=== PATIENT | male | born 1985 | race Caucasian/White ===

== ENCOUNTER 2023-12-04 13:43 | Emergency (ER) | payer OTHER, SELFPAY ==
[2023-12-04 13:44] VITALS: BP 142/89; PULSE 74; RESP 18; TEMP 36.7; O2SAT 98; BMI 26.6
--- NOTE | 2023-12-04 13:49 | ED.EAR ---
HPI - Ear Problem General Chief complaint: Ear Problems Stated complaint: impacted ear drum Time Seen by Provider: 12/04/23 14:40 Related Data Allergies Allergy/AdvReac Type Severity Reaction Status Date / Time No Known Allergies Allergy Verified 12/04/23 13:47 [facility] Social History Social History Advance Directives: No Advance Directives Information Provided: No Do you have a plan to hurt others: No Plan Physical Exam Vital Signs: Vital Signs: Last Vital Signs Temp 98 F 12/04/23 14:52 Pulse 64 12/04/23 14:52 Resp 18 12/04/23 14:52 BP 114/70 12/04/23 14:52 Pulse Ox 97 12/04/23 14:52 O2 Del Method Room Air 12/04/23 14:52 BMI result Body Mass Index 26.6 Course Course Course Narrative: This is a Rapid Medical Examination (RME) performed by Miracle Child PA-C in triage. Full HPI, ROS, assessment and treatment plan per primary provider in the Main ED. 38 yo male here for eval of decreased hearing to left ear x1 week. Reports approx 1 wk ago got metal shavings in left EAC while at work which he was able to remove himself. in the process, reports pushing cerum further back into his ear. since this time reports decreased hearing to left ear and increased pressure which has been aggravating his tinnitus. on exam, no pain on manipulation of either pinna/tragus. b/l EACs without erythema or edema. there is cerumen impaction b/l. unable to visualize tms. decreased hearing noted to L ear. Plan: disimpaction Reevaluation(s) Reevaluation #1: duplicate note. please refer to Dr. Portillo's completed note regarding patient's visit on 12/04/23. Discharge Plan Discharge Clinical Impression: Bilateral impacted cerumen Patient Disposition: Home, Self-Care Print Language: Latvian
[2023-12-04 14:52] VITALS: BP 114/70; PULSE 64; RESP 18; TEMP 36.6; O2SAT 97
--- NOTE | 2023-12-04 14:52 | ED.GENADULT ---
HPI - General Adult General Chief complaint: Ear Problems Stated complaint: impacted ear drum Time Seen by Provider: 12/04/23 14:40 History of Present Illness HPI narrative: This is a 38-year-old man with a past medical history of ankylosing spondylitis who presents for cerumen impaction. Patient reports that he has been told he has small ear canals ? with his previous episodes of ear wax impaction. Patient reports previous evening his ears irrigated. Patient reports that he was recommended to discontinue using Q-tips, but states that he has recently begun using Q-tips again. Patient reports using Q-tips about a week ago and states that he noted decreased hearing in his left ear subsequently. Patient reports no decreased hearing in his right ear. He states no ear pain or tinnitus. Patient states no fever, chills, cough, congestion, vision changes, dizziness, headache, neck pain, paresthesias, chest pain, dyspnea, abdominal pain, back pain, changes in bowel habits or urinary symptoms. Related Data Previous Rx's ?Medication ?Instructions ?Recorded carbamide peroxide 6.5 % ear drops 10 drp otic (ear) left Q12H 4 days 12/04/23 (Debrox) #15 mL Allergies Allergy/AdvReac Type Severity Reaction Status Date / Time No Known Allergies Allergy Verified 12/04/23 13:47 Review of Systems Review of Systems: ROS as per [facility] Social History Social History Advance Directives: No Advance Directives Information Provided: No Do you have a plan to hurt others: No Plan Physical Exam ED Vital Signs: Vital Signs - 24 hr 12/04/23 13:44 12/04/23 14:52 12/04/23 17:00 Temperature 98.1 F 98 F 98.1 F Pulse Rate 74 64 66 Respiratory Rate 18 18 18 Blood Pressure 142/89 H 114/70 118/72 Pulse Oximetry 98 97 98 Oxygen Delivery Method Room Air Room Air Room Air 12/04/23 17:07 Temperature 98.1 F Pulse Rate 66 Respiratory Rate 18 Blood Pressure 118/72 Pulse Oximetry 98 Oxygen Delivery Method Room Air BMI result Body Mass Index 26.6 Gen: NAD, AOx3 HEENT: NCAT, EOMI, normal conjunctiva, bilateral ear canal cerumen impaction CV: RRR Pulm: CTAB GI: Soft, NTND Neuro: Grossly non focal Procedures Ear Wax Removal Both Ears: Cerumenolytic Used: other (1:1 ratio of saline and hydrogen peroxide) Results: Re-examined: other (Cerumen completely removed from the right ear, some cerumen remains within the left ear) TM Examination: other (Unable to visualize tympanic membranes) Ear Canal Exam: other (Scant hemostatic bleeding to left external auditory ear canal) Patient Tolerated Procedure: well Medical Decision Making Medical Decision Making MDM Narrative: Differential diagnosis includes, but is not limited to cerumen impaction, tympanic membrane perforation. Exam is notable for bilateral cerumen impaction. Otherwise, exam is reassuring. The tympanic membranes are unable to be visualized. The right ear is completely disimpacted from cerumen utilizing a saline/hydrogen peroxide. The left ear remains with some cerumen. On re-examination, patient is well-appearing and in no acute distress. There is no indication for further emergent evaluation in this otherwise well-appearing patient as above. ?Patient is made aware to avoid water emersion. Patient is made aware he discontinue using Q-tips and that he may need repeat disimpaction of his left ear after trial of Debrox. Patient is provided written and verbal instructions, educational materials, recommendations for outpatient follow-up, strict return precautions, prescription for Debrox and teach back is performed. ?Patient states understanding and agreement with plan of care. ?Patient is discharged home in stable and improved condition. Discharge Plan Discharge Clinical Impression: Bilateral impacted cerumen Patient Disposition: Home, Self-Care Additional Instructions: You were seen and evaluated in the emergency room. Your right ear was completely disimpacted of ear wax. Your left ear was partially disimpacted of ear wax. You are given a prescription for ear drops. Please use as directed in your left ear for the next 4 days. Please discontinue using Q-tips. Please keep your ears out of water such as with swimming, Jacuzzi/hot tub or any type of water immersion. Please follow-up with your primary care doctor in the next 5-7 days. Please return to the emergency room if you develop any worsening symptoms including, but not limited to fever, ear pain, ringing in your ears, dizziness or new hearing loss. Prescriptions: New Debrox 6.5 % drops 10 drp otic (ear) left Q12H 4 Days Qty: 15 0RF Interventions: ED Discharge Assessment Last Done: 12/04/23 17:07 Discharge Date/Time: 12/04/23 17:08 Print Language: [place]
[2023-12-04 17:00] VITALS: BP 118/72; PULSE 66; RESP 18; TEMP 36.7; O2SAT 98
[2023-12-04 17:07] VITALS: BP 118/72; PULSE 66; RESP 18; TEMP 36.7; O2SAT 98
== END 2023-12-04 17:08 | disposition home or self-care (01) ==
PROVIDERS: Emergency Provider Emergency Medicine
DX: H61.23 Impacted cerumen, bilateral (principal)
CPT/HCPCS: 69209; 99282; 99283

== ENCOUNTER 2024-04-06 11:04 | Emergency (ER) | payer OTHER, SELFPAY ==
[2024-04-06 11:22] VITALS: BP 121/81; PULSE 75; RESP 14; TEMP 36.4; O2SAT 100; BMI 25.1
--- NOTE | 2024-04-06 11:35 | ED_ITS ---
HPI - General Adult General Chief complaint: General Medical Stated complaint: flu like symptoms Time Seen by Provider: 04/06/24 12:53 Source: patient Mode of arrival: ambulatory Limitations: no limitations History of Present Illness ED Provider: augusto DUNLAP narrative: Patient is a 38-year-old male presenting to the ED with nasal congestion, cough, sore throat, headache since Thursday, nausea and vomiting since last night. Denies fevers. Emesis non-bloody, non-bilious. States does not currently have a PCP, was advised to present here by employer. MD complaint: cough, nausea, vomiting Onset (ago): day(s) Treatments prior to arrival: none Related Data Previous Rx's ?Medication ?Instructions ?Recorded carbamide peroxide 6.5 % ear drops 10 drp otic (ear) left Q12H 4 days 12/04/23 (Debrox) #15 mL ondansetron 4 mg disintegrating 4 mg PO Q8H PRN nausea and 04/06/24 tablet vomiting #9 tabs Allergies Allergy/AdvReac Type Severity Reaction Status Date / Time No Known Allergies Allergy Verified 04/06/24 11:37 Review of Systems Review of Systems: As per HPI. Yes all other systems are reviewed and are negative Constitutional: Constitutional: Reports as per HPI [facility] Social History Social History Advance Directives: No Advance Directives Information Provided: No Do you have a plan to hurt others: No Plan Physical Exam ED Vital Signs: Vital Signs - 24 hr 04/06/24 11:22 Temperature 97.5 F Pulse Rate 75 Respiratory Rate 14 Blood Pressure 121/81 Pulse Oximetry 100 Oxygen Delivery Method Room Air BMI result Body Mass Index 25.1 Vital signs have been reviewed and appear to be correct. Blood pressure normal. Heart rate normal. Respiratory rate normal. Temperature normal. Oxygen saturation normal. Const General: cooperative, healthy appearing and no acute distress Orientation/consciousness: oriented to person, oriented to place, oriented to time and patient oriented x3 Limitations: no limitations HENMT Head: Yes normocephalic and Yes atraumatic Ears: external ears normal General nose exam: Normal external nose present Face and sinus: Yes face symmetric Mouth: oropharynx normal and moist mucous membranes Throat: Yes uvula midline Eyes Pupils: Equal, round and reactive pupils present Neck Neck: Yes normal visual inspection and Yes supple Resp Effort & Inspection: normal respiratory effort and able to speak in complete sentences Auscultation: clear to auscultation bilaterally Cardio Rate: regular rate Rhythm: regular rhythm Heart sounds: S1 normal heart sound present and S2 normal heart sound present GI Palpation (GI): Soft to palpation and nontender Auscultation: normoactive bowel sounds General: Yes no CVA tenderness Back/Spine/Pelvis Back: no CVA tenderness Skin General skin exam: elasticity normal and turgor normal Neuro General: oriented to person, oriented to place, oriented to time, patient oriented x3, moves all extremities, no focal motor deficits and CN's II-XI intact bilaterally Cranial nerves: Yes Equal, round and reactive pupils present Cognition (Neuro): normal cognition Extrem General: Yes full ROM, Yes no pedal edema and Yes no calf tenderness Psych Mental Status: mental status grossly normal Affect: normal affect Thought process: Normal thought process present Course Course Course Narrative: This is a rapid medical exam performed by Lisa Britton NP: Additional HPI, ROS, PE not included below will be deferred to primary provider. Patient is a 38-year-old male presenting to the ED with nasal congestion, cough, sore throat, headache since Thursday, nausea and vomiting since last night. Plan: strep and viral swabs Medical Decision Making Medical Decision Making [facility] Narrative: Patient is a 38-year-old male presenting to the ED with nasal congestion, cough, sore throat, headache since Thursday, nausea and vomiting since last night. On exam patient is awake, A+Ox3, VS WNL, afebrile, normal neurological exam without focal deficits, physical exam findings as above. Given reported symptoms and physical exam findings, initial differential includes viral illness, covid, flu, rsv, strep pharyngitis. Strep and viral serology negative. Patient updated on results, all questions answered. Advised symptoms likely due to viral illness, can alternate Tylenol and ibuprofen, should ensure adequate rest and adequate fluid intake. Will send prescription for zofran. Return precautions discussed. Patient verbalized understanding of and agreement with plan. Differential Diagnosis Differential Diagnoses: The differential diagnosis associated with the presentation includes As per [facility] Lab Data [facility] Lab Attestation statement: I reviewed the patient's lab results. As per [facility] Labs: Lab Results 04/06/24 Range/Units 11:58 Influenza Type A (PCR) NEGATIVE (Negative) Influenza Type B (PCR) NEGATIVE (Negative) RSV RNA Qual (PCR) NEGATIVE (Negative) SARS-CoV-2 RNA (RT-PCR) NEGATIVE (Negative) S. pyogenes GrpA KARINE Negative (Negative) External Record Review External record reviewed: Inpatient record, Office record and Outpatient record Prescription Management I considered prescription management with: Other Discharge Plan Discharge Clinical Impression: Viral illness Patient Disposition: Home, Self-Care Instructions: Viral Syndrome (ED) Additional Instructions: You were evaluated in the emergency department today for sore throat and cough. Your Covid, flu, RSV, and strep tests were all negative. Your symptoms are likely related to a viral illness which will resolve on its own with time and rest. You should ensure adequate fluid intake, and can use Tylenol 650 mg or i buprofen 600 mg every 6 hours as needed for fever or discomfort. You are being prescribed ondansetron which you can take every 8 hours as needed for nausea/vomiting. Please follow-up with your primary care provider this week. Return to the emergency department if you develop chest pain, worsening shortness of breath, difficulty swallowing, fever 100.4? F or greater or any other concerning symptoms. Prescriptions: New ondansetron 4 mg tablet,disintegrating 4 mg PO Q8H PRN (Reason: nausea and vomiting) Qty: 9 0RF No Action Debrox 6.5 % drops 10 drp otic (ear) left Q12H 4 Days Qty: 15 0RF Stand Alone Forms: Work/School Release Print Language: Macedonian
[2024-04-06 12:10] LABS: IDNOW Serial# 08D9AD1C; Strep A Nucleic Acid Negative (Negative)
[2024-04-06 12:42] LABS: Influenza A PCR NEGATIVE (Negative); Influenza B PCR NEGATIVE (Negative); Resp Syncy Virus RNA Qual PCR NEGATIVE (Negative); SARS COV2 PCR INHOUSE NEGATIVE (Negative)
[2024-04-06 13:02] VITALS: BP 121/81; PULSE 75; RESP 14; TEMP 36.4; O2SAT 100
== END 2024-04-06 13:03 | disposition home or self-care (01) ==
PROVIDERS: Registered Nurse Emergency; Emergency Provider Student in an Organized Health Care Education/Training Program
DX: B34.9 Viral infection, unspecified (principal); J02.9 Acute pharyngitis, unspecified; Z03.818 Encounter for observation for suspected exposure to other biological agents ruled out; R05.9 Cough, unspecified
CPT/HCPCS: 0241U; 87651; 99282; 99283

== ENCOUNTER 2024-05-24 18:31 | Emergency (ER) | payer OTHER, SELFPAY ==
--- NOTE | ~2024-05-24 | XR_ITS ---
EXAMINATION: XR HIP, RIGHT CLINICAL INFORMATION: Pain; history of ankylosing spondylitis. COMPARISON: None available. TECHNIQUE: AP and frog-leg lateral views of the right hip are submitted, together with an AP view of the pelvis. FINDINGS: No fracture. Alignment is anatomic. The bilateral acetabular joint spaces are symmetric and well-maintained. The femoral heads are smooth. The bilateral sacroiliac joints are symmetric and well-maintained. 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 Soft tissues are unremarkable. XR/XR hip RT w [id number] IMPRESSION: 1. No fracture or dislocation is seen. 2. No unusual degenerative changes are seen of the hips or sacroiliac joints. 3. 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 Electronically signed by: Blake Herrera MD 05/24/2024 09:13 PM [facility]
[2024-05-24 18:46] VITALS: BP 124/82; PULSE 85; RESP 18; TEMP 37; O2SAT 99; BMI 25.2
--- NOTE | 2024-05-24 18:47 | ED_ITS ---
HPI - Extremity Injury (Lower) General Chief Complaint: Extremity Injury, Lower Stated Complaint: Hip pain Time Seen by Provider: 05/24/24 22:01 Source: patient Mode of arrival: ambulatory Limitations: no limitations History of Present Illness ED Provider: sosa HPI Narrative: Patient's ankylosing spondylosis on sulfasalazine comes here with pain in the right ring finger and right hip for last 2 days similar to that previous flare- up no fall no injury patient never been on TNF inhibitors for ankylosing spondylosis usually it is pretty stable Related Data Previous Rx's ?Medication ?Instructions ?Recorded carbamide peroxide 6.5 % ear drops 10 drp otic (ear) left Q12H 4 days 12/04/23 (Debrox) #15 mL ondansetron 4 mg disintegrating 4 mg PO Q8H PRN nausea and 04/06/24 tablet vomiting #9 tabs naproxen 500 mg tablet (Naprosyn) 500 mg PO BID PRN pain #20 tabs 05/24/24 oxycodone 5 mg tablet 5 mg PO Q6H PRN pain #20 tabs 05/24/24 Allergies Allergy/AdvReac Type Severity Reaction Status Date / Time No Known Allergies Allergy Verified 05/24/24 18:51 Review of Systems Review of Systems: Yes all other systems are reviewed and are negative PMFSH Social History Social History Advance Directives: No Advance Directives Information Provided: Yes Do you have a plan to hurt others: No Plan Physical Exam Vital Signs: Vital Signs: Last Vital Signs Temp 98.1 F 05/24/24 22:09 Pulse 71 05/24/24 22:09 Resp 16 05/24/24 22:09 BP 111/69 05/24/24 22:09 Pulse Ox 100 05/24/24 22:09 O2 Del Method Room Air 05/24/24 22:09 BMI result Body Mass Index 25.2 Appearance: Alert. Oriented X3. No acute distress. Eyes: PERRLA, No Nystagmus ENT: Pharynx normal. Oral Mucosa moist Neck: Normal inspection. Neck supple. CVS: Normal heart rate and rhythm. Pulses normal. Respiratory: No respiratory distress. Equal air entry bilateral, no wheezing/rales/rhonchi Abdomen: Soft and nontender. Bowel sounds are present, no mass palpable, no CVA tenderness Skin: Skin warm and dry. Normal skin color. Normal skin turgor. Extremities: No lower extremity edema. No calf tenderness right hip diffuse tenderness in internal rotation right 4th finger proximal IP joint swelling Neuro: Oriented X 3. No motor deficit. Course Course Course Narrative: This is a Rapid Medical Examination (RME) performed by Piyush Nesbitt PA-C in triage. Full HPI, ROS, assessment and treatment plan per primary provider in the Main ED. 38 yo male with history of ankylosing spondylitis presenting for evaluation of nontraumatic right hip pain that started yesterday and has been worsening. primarily gets exacerbations of in his right hip. Plan: XR hip, pain control Medical Decision Making Independent Interpretation I performed an independent interpretation of an: Plain X-Ray Radiology Impression Discussion of test interpretation with radiology: I have reviewed the radiologist's reading. Radiologist Impression: No acute Discharge Plan Discharge Clinical Impression: Ankylosing spondylitis Patient Disposition: Home, Self-Care Instructions: Ankylosing Spondylitis (ED) Additional Instructions: Continue medication sulfasalazine Oxycodone for severe pain Naproxen 1 tablet twice a day for inflammation Prescriptions: New oxycodone 5 mg tablet 5 mg PO Q6H PRN (Reason: pain) Qty: 20 0RF Rx Instructions: Partial Fill upon patient request. naproxen [Naprosyn] 500 mg tablet 500 mg PO BID PRN (Reason: pain) Qty: 20 0RF No Action Debrox 6.5 % drops 10 drp otic (ear) left Q12H 4 Days Qty: 15 0RF ondansetron 4 mg tablet,disintegrating 4 mg PO Q8H PRN (Reason: nausea and vomiting) Qty: 9 0RF Print Language: Sammarinese
[2024-05-24 22:09] VITALS: BP 111/69; PULSE 71; RESP 16; TEMP 36.7; O2SAT 100
[2024-05-24] MEDS: oxyCODONE HCl Immed Release 5 MG TABLET 10 MG PO (22:29)
[2024-05-24 22:31] VITALS: BP 111/69; PULSE 71; RESP 16; TEMP 36.7; O2SAT 100
== END 2024-05-24 22:33 | disposition home or self-care (01) ==
PROVIDERS: Emergency Provider Internal Medicine
DX: M45.9 Ankylosing spondylitis of unspecified sites in spine (principal); M25.551 Pain in right hip
CPT/HCPCS: 73502; 99283

== ENCOUNTER 2025-05-29 07:56 | Outpatient (AMB) | payer OTHER, SELFPAY ==
--- OUTSIDE RECORDS SUMMARY | 2025-05-29 08:00 | XMS_ITS | Clinical Summary ---
Author Organization [address] Address [address] [place] [address] Phone Care Team Providers Care Lining Cleaner Name Role Phone Kailey Carter MD Primary Care Provider [phone] Allergies No known active allergies Medications methylphenidate 27 mg ER tablet Take 1 tablet (27 mg total) by mouth 1 (one) time each day in the morning. Max Daily Amount: 27 mg 4 Active amphetamine-dex troamphetamine XR (ADDERALL XR) 20 mg 24 hr capsule Take 1 capsule (20 mg total) by mouth 1 (one) time each day in the morning. upon awakening 5 Active hydrOXYzine pamoate (VISTARIL) 25 mg capsule Take 1 capsule (25 mg total) by mouth. 5 Active traZODone (DESYREL) 50 mg tablet Take 1 tablet (50 mg total) by mouth at bedtime. 5 Active Active Problems Problem Noted Date Diagnosed Date Attention deficit hyperactiv ity disorder (ADHD), predominantly hyperactive type 04/20/2025 Ankylosing spondylitis (CMS/[facility] V24, CMS/HCC V28 ) 04/20/2025 Insomnia 04/20/2025 Encounters Date Type Department Care Team Description 04/21/2025 Results Follow-Up Adult [address] [phone] Yvonne Melara MA 04/20/2025 2:30 PM EDT Office Visit [address] [phone] Neo Du PA Routine physical examination (Primary Dx); Multiple nevi; Scrotal masses; Attention deficit hyperactivity disorder (ADHD), predominantly hyperactive type; Insomnia, unspecified type; Ankylosing spondylitis, unspecified site of spine ([facility] V24, [facility] V28); Screening for prostate cancer; Encounter to establish care from Last 3 Months Immunizations Immunization Administration Dates Next Due Influenza trivalent, 0.5mL, preservative free (Fluarix; FluLaval; Fluzone) ages 6mo and older (Afluria) 3 years and older 04/19/2025,05/08/2024 Surgical History Surgery Date Site/Laterality Comments VASECTOMY 2021 WRIST FRACTURE SURGERY 07/06/1991 - 07/05/1992 Right Family History Medical History Relation Name Comments Coronary artery disease Father Lung cancer Maternal Grandfather Alzheimer's disease Maternal Grandmother Diabetes Mother Hypertension Mother Stroke Mother Relation Name Status Comments Father Alive Maternal Grandfather Maternal Grandmother Mother Alive Social History Tobacco Use Types Packs/Day Years Used Date Smoking Tobacco: Never Smokeless Tobacco: Never Alcohol Use Standard Drinks/Week Comments Yes 0 (1 standard drink = 0.6 oz pur e alcohol) occ Housing Instability Answer Date Recorde d Are you worried that in the next 2 months you may not have stable housing? No 04/21/2025 Food Access & Nutrition Answer Date Rec orded Do you have access to a vari ety of food including fruits and vegetables? Yes 04/21/2025 Health Literacy Answer Date Recorded How often do you need to hav e someone help you when you read instructions, pamphlets, or other written material from your doctor or pharmacy? Never 04/21/2025 Caregiver: How often do you need to have someone help you when you read instructions, pamphlets, or other written material from your doctor or pharmacy? Not on file 04/21/2025 Financial Risk Answer Date Recorded How hard is it for you to pa y for the very basics like food, housing, medical care, and air conditioning / heating? Not very hard 04/21/2025 Transportation Answer Date Recorded Has the lack of transportati on kept you from meetings, work, or from getting things needed for daily living? No Has the lack of transportati on kept you from medical appointments or from getting medications? No 04/21/2025 Social Isolation Answer Date Recorded How often do you feel lonely or isolated from th ose around you? Never 04/21/2025 Food Risk Answer Date Recorded Within the past 12 months we worried whether our food would run out before we got money to buy more. Never true 04/21/2025 Within the past 12 months th e food we bought just didn't last and we didn't have money to get more. Never true 04/21/2025 Dependent Care Answer Date Recorded Do you need help finding or paying for care for your loved ones. For example, manager child or elderly care for an older adult? No 04/21/2025 Education Answer Date Recorded Do you think completing more education or training, like finishing a GED, going to college, or learning a trade, would be helpful for you? No 04/21/2025 Employment and Income Answer Date Recor ded During the last four weeks, have you been actively looking for work? No 04/21/2025 Living Situation Answer Date Recorded What is your living situation? Unrecognized valu e 04/21/2025 Sex and Gender Information Value Date Recorded Sex Assigned at Not on file Legal Sex Male 11:41 AM EDT Gender Identity Not on file Sexual Orientation Not on file Obstetrics History Last Filed Vital Signs Vital Sign Reading Time Taken Comments Blood Pressure 102/68 04/20/2025 2:40 PM EDT Pulse 78 04/20/2025 2:40 PM EDT Temperature 36.3 C (97.4 F) 04/20/2025 2:40 PM EDT Respiratory Rate 12 04/20/2025 2:40 PM EDT Oxygen Saturation - - Inhaled Oxygen Concentration - - Weight 74.2 kg (163 lb 8 oz) 04/20/2025 2:40 PM EDT Height 172.7 cm (5' 8 ) 04/20/2025 2:40 PM EDT Body Mass Index 24.86 04/20/2025 2:40 PM EDT Plan of Treatment Upcoming Encounters Date Type Department Care Team (Late st Contact Info) Description 04/26/2026 9:30 AM EDT Office Visit Adult Medicine [address] [phone] Kailey Carter MD [address] [place] [address] Health Maintenance Due Date Last Done Comments DTaP,Tdap,and Td Vaccines (1 - Tdap) 10/01/2003 Hepatitis B Vaccines (1 of 3 - 19+ 3-dose series) 10/01/2003 HPV Vaccines (1 - 3-dose SCD M series) 10/01/2011 HIV Screening 04/20/2024 Hepatitis C Screening 04/20/2024 COVID-19 Vaccine (4 - 2024-2 6 season) 2025 12/04/2024, 05/08/2024, 10/16/2023 Social Influencers of Health Screening 04/21/2026 04/21/2025 Cholesterol Screening (Lipid Panel) 04/20/2030 04/20/2025 RSV Immunization Adult Patients (1 - 1-dose 75+ series) 10/01/2059 Influenza Vaccine Completed 04/19/2025, 05/08/2024 Depression Screening Completed 04/21/2025 HIB Vaccines Aged Out No longer eligi ble based on patient's age to complete this topic Hepatitis A Vaccines Aged Out No long er eligible based on patient's age to complete this topic IPV Vaccines Aged Out No longer eligi ble based on patient's age to complete this topic MMR Vaccines Aged Out No longer eligi ble based on patient's age to complete this topic Meningococcal ACWY Vaccine Aged Out N o longer eligible based on patient's age to complete this topic Meningococcal B Vaccine Aged Out No l onger eligible based on patient's age to complete this topic Pneumococcal Vaccine: Pediatrics (0 to 5 Years) and At-Risk Patients (6 to 49 Years) Aged Out No longer eligible b ased on patient's age to complete this topic RSV Immunization Patients Under 20 months Aged Out No longer eligible b ased on patient's age to complete this topic Varicella Vaccines Aged Out No longer eligible based on patient's age to complete this topic Procedures Procedure Name Priority Date/Time Associated Diagnosis Comments CBC WITH AUTO DIFFERENTIAL Routine 04/20/2025 3:30 PM EDT Routine physical examination CBC AND DIFFERENTIAL Routine 04/20/2025 3:30 PM EDT Routine physical examination COMPREHENSIVE METABOLIC PANEL Routine 04/20/2025 3:30 PM EDT Routine physical examination HEMOGLOBIN A1C Routine 04/20/2025 3:30 PM EDT Routine physical examination LIPID PANEL WITH REFLEX TO DIRECT LDL Routine 04/20/2025 3:30 PM EDT Routine physical examination PROSTATE SPECIFIC ANTIGEN DIAGNOSTIC Routine 04/20/2025 3:30 PM EDT Routine physical examination Screening for prostate cancer THYROID STIMULATING HORMONE WITH REFLEX TO FREE T4 AND FREE T3 Routine 04/20/2025 3:30 PM EDT Routine physical examination from Last 3 Months Results * Thyroid stimulating hormone with reflex to free t4 and free t3 (04/20/2025 3:30 PM EDT) TSH 1.18 0.40 - 4.00 mcIU/mL LAB CHEMISTRY METHOD 04/20/2025 7:53 PM EDT [facility] Blood Venous blood specimen / Unknown Venipuncture / Unknown 04/20/2025 3:30 PM EDT 04/20/2025 3:30 PM EDT Neo STACY LAB BLOOD ORDERABLES Final Res ult [facility] [address] [place] [address], [place] [phone] * (ABNORMAL) Lipid panel with reflex to direct LDL (04/20/2025 3:30 PM EDT) Cholesterol 181 0 - 200 mg/dL LAB CHEMISTRY METHOD 04/20/2025 6:49 PM EDT [facility] Triglycerides 152(H) 0 - 150 mg/dL LAB CHEMISTRY METHOD 04/20/2025 6:49 PM EDT [facility] HDL 46 >=40 mg/dL LAB CHEMISTRY METHOD 04/20/2025 6:49 PM EDT [facility] LDL Calculated 105(H) 0 - 100 mg/dL LAB CHEMISTRY METHOD 04/20/2025 6:49 PM EDT [facility] Comment:Estimated LDL Calcul ated using equation: Total cholesterol - HDL cholesterol - (Triglycerides/5) VLDL Cholesterol Emil 30.4 mg/dL LAB CHEMISTRY METHOD 04/20/2025 6:49 PM EDT [facility] Non HDL Chol. (LDL+VLDL) 135 <145 mg/dL LAB CHEMISTRY METHOD 04/20/2025 6:49 PM EDT [facility] Chol/HDL Ratio 3.9 0.0 - 4.4 LAB CHEMISTRY METHOD 04/20/2025 6:49 PM EDT [facility] Blood Venous blood specimen / Unknown Venipuncture / Unknown 04/20/2025 3:30 PM EDT 04/20/2025 3:30 PM EDT Neo STACY LAB BLOOD ORDERABLES Final Res ult [facility] [address] [place] [address], * Prostate specific antigen diagnostic (04/20/2025 3:30 PM EDT) PSA 0.40 0.00 - 4.00 ng/mL LAB CHEMISTRY METHOD 04/20/2025 7:17 PM EDT [facility] Blood Venous blood specimen / Unknown Venipuncture / Unknown 04/20/2025 3:30 PM EDT 04/20/2025 3:30 PM EDT Narrative [facility] - 04/20/2025 7:17 PM EDT The Siemens Advia Centaur Chemiluminescent Immunoassay is used. Results obtained with different assay methods or kits cannot be used interchangeably. Results cannot be interpreted as absolute evidence of the presence or absence of malignant disease. Neo STACY LAB BLOOD ORDERABLES Final Res ult [facility] [address] [place] [address], * (ABNORMAL) CBC auto differential (04/20/2025 3:30 PM EDT) WBC 6.6 4.8 - 10.8 K/mcL LAB HEMETOLOGY METHOD 04/20/2025 6:34 PM EDT [facility] RBC 4.70 4.50 - 5.50 M/[facility] LAB HEMETOLOGY METHOD 04/20/2025 6:34 PM EDT [facility] Hemoglobin 14.5 13.5 - 17.5 g/dL LAB HEMETOLOGY METHOD 04/20/2025 6:34 PM EDT [facility] Hematocrit 41.7(L) 42.0 - 54.0 % LAB HEMETOLOGY METHOD 04/20/2025 6:34 PM EDT [facility] MCV 88.2 79.0 - 98.0 FL LAB HEMETOLOGY METHOD 04/20/2025 6:34 PM EDT [facility] MCH 30.7 27.0 - 32.0 pcg LAB HEMETOLOGY METHOD 04/20/2025 6:34 PM EDT [facility] MCHC 34.8 32.0 - 37.0 g/dL LAB HEMETOLOGY METHOD 04/20/2025 6:34 PM EDT [facility] RDW 13.0 11.0 - 15.0 % LAB HEMETOLOGY METHOD 04/20/2025 6:34 PM EDT [facility] Platelets 320 130 - 400 K/[facility] LAB HEMETOLOGY METHOD 04/20/2025 6:34 PM EDT [facility] MPV 9.5 7.0 - 11.0 FL LAB HEMETOLOGY METHOD 04/20/2025 6:[facility] NRBC 0.0 <1.0 % LAB HEMETOLOGY METHOD 04/20/2025 6:34 PM EDT [facility] NRBC Absolute 0.00 <0.10 K/mcL LAB HEMETOLOGY METHOD 04/20/2025 6:34 PM EDT [facility] Neutrophils Relative 54.4 % LAB HEMETOLOGY METHOD 04/20/2025 6:34 PM EDT [facility] Lymphocytes Relative 31.9 % LAB HEMETOLOGY METHOD 04/20/2025 6:34 PM EDT [facility] Monocytes Relative 10.5 % LAB HEMETOLOGY METHOD 04/20/2025 6:34 PM [facility] Eosinophils Relative 2.3 % LAB HEMETOLOGY METHOD 04/20/2025 6:34 PM EDT [facility] Basophils Relative 0.6 % LAB HEMETOLOGY METHOD 04/20/2025 6:34 PM EDT [facility] Immature Granulocytes Relative 0.3 % LAB HEMETOLOGY METHOD 04/20/2025 6:34 PM EDT [facility] Neutrophils Absolute 3.61 1.50 - 7.00 K/mcL LAB HEMETOLOGY METHOD 04/20/2025 6:34 PM T [facility] Lymphocytes Absolute 2.12 1.00 - 5.00 K/mcL LAB HEMETOLOGY METHOD 04/20/2025 6:34 PM EDT [facility] Monocytes Absolute 0.70 0.20 - 1.00 K/mcL LAB HEMETOLOGY METHOD 04/20/2025 6:34 PM EDT [facility] Eosinophils Absolute 0.15 0.00 - 0.50 K/mcL LAB HEMETOLOGY METHOD 04/20/2025 6:34 PM EDT [facility] Basophils Absolute 0.04 0.00 - 0.20 K/mcL LAB HEMETOLOGY METHOD 04/20/2025 6:34 PM EDT [facility] Immature Granulocytes Absolute 0.02 0.00 - 0.03 K/mcL LAB HEMETOLOGY METHOD 04/20/2025 6:34 PM EDT [facility] Blood Venous blood specimen / Unknown Venipuncture / Unknown 04/20/2025 3:30 PM EDT 04/20/2025 3:30 PM EDT [facility] Final Res ult Performing Organization Address City/[facility]/ZIP Co de Phone Number [facility] [address] [place] [address], [place] [phone] * Hemoglobin A1c (04/20/2025 3:30 PM EDT) Hemoglobin A1C 5.5 <6.5 % LAB CHEMISTRY METHOD 04/20/2025 9:43 PM EDT [facility] Mean Bld Glu Estim. 111 mg/dL LAB CHEMISTRY METHOD 04/20/2025 9:43 PM EDT [facility] Blood Venous blood specimen / Unknown Venipuncture / Unknown 04/20/2025 3:30 PM EDT 04/20/2025 3:30 PM EDT Neo Du [place] LAB BLOOD ORDERABLES Final Res ult Performing Organization Address City/[facility]/ZIP Co de Phone Number [facility] [address] [place] [address], [place] [phone] * Comprehensive metabolic panel (04/20/2025 3:30 PM EDT) Sodium 139 133 - 145 mmol/L LAB CHEMISTRY METHOD 04/20/2025 6:49 PM EDT [facility] Potassium 3.9 3.5 - 5.5 mmol/L LAB CHEMISTRY METHOD 04/20/2025 6:49 PM EDT [facility] Chloride 105 96 - 110 mmol/L LAB CHEMISTRY METHOD 04/20/2025 6:49 PM [facility] CO2 29 21 - 32 mmol/L LAB CHEMISTRY METHOD 04/20/2025 6:49 PM [facility] Anion Gap 5 3 - 11 LAB CHEMISTRY METHOD 04/20/2025 6:49 PM [facility] Glucose 92 70 - 100 mg/dL LAB CHEMISTRY METHOD 04/20/2025 6:49 PM [facility] BUN 15 5 - 25 mg/dL LAB CHEMISTRY METHOD 04/20/2025 6:49 PM [facility] Creatinine 1.23 0.70 - 1.30 mg/dL LAB CHEMISTRY METHOD 04/20/2025 6:49 PM [facility] eGFR 76 >=60 mL/min/1. 73m2 LAB CHEMISTRY METHOD 04/20/2025 6:49 PM [facility] Comment:Calculation based on the Chronic Kidney Disease Epidemiology Collaboration (CKD-EPI) equation refit without adjustment for race. BUN/Creatinine Ratio 12.2 LAB CHEMISTRY METHOD 04/20/2025 6:49 PM [facility] Calcium 9.1 8.5 - 10.5 mg/dL LAB CHEMISTRY METHOD 04/20/2025 6:49 PM [facility] AST (SGOT) 28 10 - 42 unit/L LAB CHEMISTRY METHOD 04/20/2025 6:49 PM [facility] ALT (SGPT) 34 10 - 60 unit/L LAB CHEMISTRY METHOD 04/20/2025 6:49 PM [facility] Alkaline Phosphatase 68 42 - 121 unit/L LAB CHEMISTRY METHOD 04/20/2025 6:49 PM [facility] Total Protein 7.4 6.0 - 8.0 g/dL LAB CHEMISTRY METHOD 04/20/2025 6:49 PM [facility] Albumin 4.4 3.2 - 5.0 g/dL LAB CHEMISTRY METHOD 04/20/2025 6:49 PM EDT [facility] Total Bilirubin 0.6 0.0 - 1.4 mg/dL LAB CHEMISTRY METHOD 04/20/2025 6:49 PM EDT [facility] ([facility]) [facility] Blood Venous blood specimen / Unknown Venipuncture / Unknown 04/20/2025 3:30 PM EDT 04/20/2025 3:30 PM EDT us Neo [facility] LAB BLOOD ORDERABLES Final Res ult [facility] ([facility]) [facility] [address] [place] [address], [place] [phone] from Last 3 Months Insurance [facility] Care Teams Lining Cleaner Relationship Specialty Start Date End Date Kailey Carter MD [address] [place] [phone] PCP - General Internal Medicine 06/07/24
[2025-05-29 08:07] VITALS: BP 102/78; PULSE 60; TEMP 36.7; O2SAT 99; BMI 24.4
--- NOTE | 2025-05-29 08:07 | A.OFFPC_ITS ---
Vital Signs 05/29/25 08:07 Height 5 ft 8 in Weight 160 lb 8 oz BMI 24.4 BP 102/78 Blood Pressure Location Lt brachial Position Sitting Pulse 60 Pulse Source Pulse Oximeter Temp 98.1 F Temp Source Temporal Artery Scan Pulse Oximetry (%) 99 Oxygen Delivery Method Room Air Intake Visit Reasons: establish care/pe request Allergies No Known Allergies Allergy (Verified 05/29/25 08:16) Medication List - Last Reconciled 05/29/25 by Hermila Reese PA-C dexmethylphenidate ER 5 mg PO DAILY dextroamphetamine-amphetamine 20 mg ER 1 cap PO QAM trazodone 50 mg PO BEDTIME Tobacco use date assessed: 05/29/25 Dental Screening Dental Screen Date: 05/29/25 Did you have a dental visit in the last 12 months?: No Did you have a dental problem in the last 6 months where you did not have access to dental care?: No Was dental information given to patient?: Patient has dentist HPI establish care/pe request HPI Details 39-year-old male coming to the office wi th the 1st time. Presenting to establish care as a new patient. The patient was previously seen at [facility], with the last physical about one month ago. Current medications include Adderall 20 mg ER taken around 2 p.m. and dexmethylphenidate 5 mg as a booster for ADHD, as well as trazodone for sleep issues and another unspecified medication for anxiety which also aids sleep. These medications are prescribed by a psychiatrist seen monthly via telehealth. Past medical history is significant for ankylosing spondylitis, with symptoms having regressed, leading to discontinuation of sulfasalazine two years ago. eye doctor: yearly vaccines: UTD last PE: 04/20[facility] Surgical History H/O vasectomy Family History Father Stroke Mother Stroke Maternal Grandfather Lung cancer Maternal Grandmother Alzheimer disease Other ADHD Ankylosing spondylitis Social History Housing: House Patient Tobacco Use Status: Never used Tobacco Tobacco use type: Cigarette e-Cigarette/Vaping Use: Never Used Second Hand Smoke Exposure: No service: Yes Current occupational status: employed Current occupation: Cognitive needs: No Hearing needs: No Vision needs: No Questionnaire PHQ-9 Over the last 2 weeks, how often have you been bothered by any of the following problems? 1. Little interest or pleasure in doing things: not at all 2. Feeling down, depressed, or hopeless: not at all 3. Trouble falling or staying asleep, or sleeping too much: not at all 4. Feeling tired or having little energy: not at all 5. Poor appetite or overeating: not at all 6. Feeling bad about yourself - or that you are a failure or have let yourself or your family down: not at all 7. Trouble concentrating on things, such as reading the newspaper or watching television: several days 8. Moving or speaking so slowly that other people could have noticed. Or the opposite - being so fidgety or restless that you have been moving around a lot more than usual: not at all 9. Thoughts that you would be better off or of hurting yourself in some way: not at all Total score: 1 Depression Screening Interpretation: Negative Depression Screening Done: Yes Source: Developed by Drs. Wade Houston, Debora Cloud, Sean Connell and colleagues, with an educational devyn from [employer]. Thrive Questionnaire Date Thrive assessed: 05/29/25 I am a: Patient What is your living situation today?: I have a steady place to live Within the past 12 months, did the food you bought not last and you didn't have the money to get more?: Never true Within the past 12 months, did you worry whether your food would run out before you got money to buy more?: Never true Do you have trouble paying for medicines?: No Do you have trouble getting transportation to medical appointments?: No Do you have trouble paying your heating and electricity bill?: No Do you have trouble taking care of your child, family member or friend?: No Do you have trouble with day-to-day activities such as bathing, preparing meals, shopping, managing finances, etc.?: No Are you currently unemployed and looking for a job?: No Are you interested in more education?: No Please select the resources that you would like help with: None Currently or been in a relationship where the following occur: I choose not to answer THRIVE Score: 0 AUDIT C Alcohol Use Questionnaire (AUDIT-C) 1. How often do you have a drink containing alcohol?: Monthly or less 2. How many drinks containing alcohol do you have on a typical day when you are drinking?: 1 or 2 3. How often do you have six or more drinks on one occasion?: Never Total Score: 1 CAMILLE-7 AMB Questionnaire CAMILLE-7 Date CAMILLE - 7 assessed: 05/29/25 Feeling nervous, anxious, or on edge: 0 = Not at all Not being able to stop or control worryin = Several days Worrying too much about different things: 1 = Several days Trouble relaxin = Several days Being so restless that it is hard to sit still: 1 = Several days Becoming easily annoyed or irritable: 0 = Not at all Feeling afraid as if something awful might happen: 0 = Not at all Total CAMILLE-7 score (0-4 normal; 5-9 mild; 10-14 moderate; 15-21 severe): 4 Source: Developed by Drs. Wade Houston, Debora Cloud, Sean Connell and colleagues, with an educational devyn from [employer]. CAMILLE-7 Assessment Billing CAMILLE-7 Assessment Tool: CAMILLE-7 Assessment 54257 Review of Systems Const Denies body aches, Denies chills and Denies fever(s) Eyes Reports no additional complaints ENT Denies dizziness Card Denies chest pain, Denies edema, Denies lightheadedness and Denies dyspnea Resp Denies dyspnea GI Denies nausea and Denies vomiting Reports no additional complaints Musc Reports no additional complaints and Denies abnormal gait Skin/Breast Reports system reviewed and no additional complaints, except as documented Neuro Denies abnormal gait and Denies dizziness Psych Reports no additional complaints Physical exam (Primary Care) Vital Signs: Last Vital Signs Temp 98.1 F 05/29/25 08:07 Pulse 60 05/29/25 08:07 BP 102/78 05/29/25 08:07 Pulse Ox 99 05/29/25 08:07 Oxygen Delivery Method Room Air 05/29/25 08:07 BMI result Body Mass Index 24.4 Tobacco/Smoking Status: Tobacco use Status Tobacco use date assessed 05/29/25 05/29/25 08:09 Patient Tobacco Use Status Never used Tobacco 05/29/25 08:20 Tobacco use type Cigarette 05/29/25 08:20 e-Cigarette/Vaping Use Never Used 05/29/25 08:20 PHQ-9: PHQ-9 Score PHQ-9: Total score 1 05/29/25 08:32 Depression Screening Interpretation: Negative Thrive Assessment: Date of Thrive Assessment Date Thrive assessed 05/29/25 05/29/25 08:12 Currently or been in a relationship where the following occur: I choose not to answer Const General: cooperative, healthy appearing, comfortable and no acute distress Orientation/consciousness: patient oriented x3 HENMT Head: Yes normocephalic Ears: hearing grossly normal bilaterally General nose exam: Normal external nose present Eyes General: appearance normal, both eyes and all related structures Conjunctivae: conjunctivae normal Neck Neck: Yes full ROM and Yes no lymphadenopathy Resp Effort & Inspection: normal respiratory effort Auscultation: clear to auscultation bilaterally, no crackles, no rales, no rhonchi and no wheezes Cardio Rate: regular rate Rhythm: regular rhythm Skin General skin exam: no rashes or lesions noted Neuro General: patient oriented x3 Gait exam (Neuro): Normal gait present Extrem General: Yes normal to inspection, Yes full ROM and No edema Psych Affect: normal affect Attitude: cooperative Insight: Good insight present (Psych) Judgement: Good judgement present (Psych) Coding Level of Care Code New Pt Level 3 (86504) Diagnoses Insomnia G47.00 ADHD F90.9 Ankylosing spondylitis M45.9 Hypercholesteremia E78.00 Atypical nevi D22.9 Additional Codes CAMILLE-7 Assessment Billing - CAMILLE-7 Assessment Tool: CAMILLE-7 Assessment 96856 ([id number]) Assessment & Plan Assessment & Plan (1) Insomnia: Code(s): G47.00 - Insomnia, unspecified Category: Medical Plan: The patient uses trazodone and another unspecified medication for sleep, which are prescribed by a psychiatrist. This condition is being managed externally, and no changes were made during this visit. (2) ADHD: Comment[facility] Code(s): F90.9 - Attention-deficit hyperactivity disorder, unspecified type Category: Medical Plan: The patient's ADHD is managed with Adderall and dexmethylphenidate prescribed by an outside psychiatrist whom the patient sees monthly. (3) Ankylosing spondylitis: Comment: [facility] yearly prev taking Sulfasalazine Code(s): M45.9 - Ankylosing spondylitis of unspecified sites in spine Category: Medical Plan: The patient's ankylosing spondylitis is in remission, with symptoms having regressed. The patient is off medication for this condition and follows with rheumatology on a yearly or as-needed basis. Back pain is currently well-c ontrolled. No acute management is required at this time. (4) Hypercholesteremia: Code(s): E78.00 - Pure hypercholesterolemia, unspecified Category: Medical Plan: Recent labs showed slightly elevated cholesterol. The patient adheres to a mostly vegan diet. The importance of adequate B12 intake was discussed, with a supplement recommended if dietary intake is insufficient. Recent labs will be reviewed upon receipt from previous PCP. (5) Atypical nevi: Code(s): D22.9 - Melanocytic nevi, unspecified Category: Medical Plan: The patient has multiple skin moles that the patient wishes to have evaluated by a platform software engineer. An existing dermatology appointment is scheduled for October. An inquiry will be made to [facility] to check if they accept and can offer an earlier appointment. Plan This note was constructed using voice recognition software. While every effort has been made to ensure accuracy and credit intern, still areas may have been included sometimes these areas may affect the content or meeting of the given symptoms. Total time spent caring for the patient today was thirty minutes. This includes time spent before the visit reviewing the chart, time spent during the visit, and time spent after the visit and documentation. Patient was informed and verbally consented to the use of an ambient scribe for clinic note documentation during this visit. Orders: Referrals Dermatology Referral D22.9 - Melanocytic nevi, unspecified Medications: Discontinued carbamide peroxide 6.5% (Debrox) Discontinued Reason: Patient no longer taking 10 drps otic (ear) left Q12H 4 days 15 mL 0RF ondansetron Discontinued Reason: Patient Completed Course 4 mg PO Q8H PRN 9 tabs 0RF nausea and vomiting naproxen (Naprosyn) Discontinued Reason: Patient no longer taking 500 mg PO BID PRN 20 tabs 0RF pain oxycodone Partial Fill upon patient request. Discontinued Reason: Patient Completed Course 5 mg PO Q6H PRN 20 tabs 0RF pain
== END 2025-05-29 08:50 | disposition home or self-care (01) ==
LOC: HO.HMCH 07:57
DX: G47.00 Insomnia, unspecified (principal); F90.9 Attention-deficit hyperactivity disorder, unspecified type; M45.9 Ankylosing spondylitis of unspecified sites in spine; E78.00 Pure hypercholesterolemia, unspecified; D22.9 Melanocytic nevi, unspecified

== ENCOUNTER → 2025-05-29 07:56 | Outpatient (BNVA) | payer OTHER, SELFPAY | DX: Z76.89 Persons encountering health services in other specified circumstances (principal); Z13.31 Encounter for screening for depression; Z13.39 Encounter for screening examination for other mental health and behavioral disorders; G47.00 Insomnia, unspecified; F90.9 Attention-deficit hyperactivity disorder, unspecified type; M45.9 Ankylosing spondylitis of unspecified sites in spine; E78.00 Pure hypercholesterolemia, unspecified; D22.9 Melanocytic nevi, unspecified | CPT/HCPCS: 96127; 99202 ==